=== PATIENT | female | born 1965 | race Caucasian/White ===

== ENCOUNTER 2016-04-24 12:43 | Outpatient (CLI) | payer OTHER | END 2016-04-24 12:44 | disposition home or self-care (01) | DX: S83.422A Sprain of lateral collateral ligament of left knee, initial encounter (principal); M17.12 Unilateral primary osteoarthritis, left knee ==

== ENCOUNTER 2016-08-31 18:29 | Outpatient (CLI) | payer OTHER | END 2016-08-31 18:30 | disposition critical access hospital (66) | LOC: EMS 18:29 | PROVIDERS: ATTEND Surgery | DX: R40.4 Transient alteration of awareness (principal) | CPT/HCPCS: A0425; A0429 ==

== ENCOUNTER 2016-08-31 18:51 | Inpatient (IN) | payer OTHER ==
[2016-08-31] MEDS ORDERED: SODIUM CHLORIDE 0.9% 1,000 ML IV ONE (18:58)
--- NOTE | 2016-08-31 18:59 | ED Physician Documentation ---
PD HPI OVERDOSE - Stated complaint Stated Complaint: AMS - History obtained from History obtained from: Family, EMS - History of Present Illness Timing - onset: Other (Brought in by ambulance, history from paramedics and the daughter for the most part. She been quite depressed lately and we think she overdosed this afternoon, potentially on Benadryl mostly, possibly gabapentin and meloxicam as well.) Review of Systems Unable to obtain: AMS PD PAST MEDICAL HISTORY - Past Medical History Respiratory: Asthma Neuro: Headache/migraine, Seizure disorder GI: Diverticulitis : Kidney stones Musculoskeletal: Rheumatoid arthritis, Chronic back pain - Past Surgical History Past Surgical History: Yes Ortho: Rotator cuff repair /FORENSIC EXAMINER: Tubal ligation - Present Medications Home Medications: Ambulatory Orders Medication Instructions Recorded Confirmed Gabapentin 100 mg PO TID 01/16/14 01/16/14 Hydrocodone/Acetaminophen 1 each PO Q6H PRN #20 tablet 01/16/14 [Hydrocodon-Acetaminophn 10-325] Hydrocodone/Acetaminophen 1 tab PO QPM PRN 01/16/14 01/16/14 [Hydrocodon-Acetaminophn 10-325] Hydroxyzine HCl 50 mg PO QPM 01/16/14 01/16/14 Meloxicam 10 mg PO DAILY 01/16/14 01/16/14 Rizatriptan Benzoate [Maxalt] 10 mg PO ONCE PRN 01/16/14 01/16/14 Topiramate [Topamax] 50 mg PO DAILY 01/16/14 01/16/14 - Allergies Allergies/Adverse Reactions: Allergies Allergy/AdvReac Type Severity Reaction Status Date / Time adhesive Allergy Unknown Verified 01/16/14 12:08 amoxicillin Allergy Unknown Verified 08/31/16 19:01 codeine Allergy Unknown Verified 01/16/14 12:08 Latex, Natural Rubber Allergy Unknown Verified 01/16/14 12:08 nickel [Nickel] Allergy Unknown Verified 01/16/14 12:08 prednisone Allergy Unknown Verified 01/16/14 12:08 venom-honey bee Allergy Unknown Verified 01/16/14 12:08 [bee venom (honey bee)] - Social History Does the pt smoke?: Yes Smoking Status: Current every day smoker Does the pt drink ETOH?: No Does the pt have substance abuse?: No PD ED PE NORMAL - Vitals Vital signs reviewed: Yes - General General: Other (She is alert, makes eye contact, nonsurgical at when I ask her if she overdosed and try to kill herself. She is for the most part nonverbal though with a lot of obvious nystagmus.) - HEENT HEENT: Other (Midpoint pupils with nystagmus, dry mucous membranes) - Neck Neck: Supple, no meningeal sign, No bony TTP - Cardiac Cardiac: RRR, No murmur - Respiratory Respiratory: No respiratory distress, Clear bilaterally - Abdomen Abdomen: Soft, Non tender - Derm Derm: Normal color, Warm and dry - Extremities Extremities: No edema, No calf tenderness / cord - Neuro Neuro: No motor deficit, No sensory deficit Results - Vitals Vitals: Vital Signs - 24 hr 08/31/16 08/31/16 18:53 19:37 Temperature 36.2 C L Heart Rate 88 90 Respiratory 18 18 Rate Blood Pressure 154/119 H 132/69 H O2 Saturation 97 94 Oxygen O2 Source Room air - EKG (time done) 1913 Rate: Rate (enter#) (87) Rhythm: NSR [place]: Normal Intervals: Normal HI QRS: Normal Ischemia: Normal ST segments Computer interpretation: Agree with computer - Labs Labs: Laboratory Tests 08/31/16 08/31/16 08/31/16 18:30 18:58 18:58 WBC 8.4 RBC 5.06 Hgb 15.8 Hct 46.9 MCV 92.7 MCH 31.2 H MCHC 33.7 RDW 12.8 Plt Count 250 MPV 9.2 Neut # 3.5 Lymph # 3.9 H Sutter # 0.7 Eos # 0.2 Baso # 0.0 Absolute Nucleated RBC 0.00 Nucleated RBCs 0.0 Sodium 139 Potassium 4.1 Chloride 105 Carbon Dioxide 23 Anion Gap 11.0 BUN 22 H Creatinine 0.8 Estimated GFR (MDRD) 76 L Glucose 88 Lactic Acid Calcium 9.5 Magnesium 2.5 Total Bilirubin 0.6 AST 50 H ALT 36 Alkaline Phosphatase 80 CK-MB (CK-2) 1.4 Troponin I < 0.04 Total Protein 8.7 H Albumin 4.9 Globulin 3.8 Albumin/Globulin Ratio 1.3 Lipase 13 L TSH Urine Color Urine Clarity Urine pH Ur Specific [place] Urine Protein Urine Glucose (UA) Urine Ketones Urine Occult Blood Urine Nitrite Urine Bilirubin Urine Urobilinogen Ur Leukocyte Esterase Ur Microscopic Review Urine Culture Comments Urine HCG, Qual Salicylates < 6.0 Urine Opiates Screen Ur Oxycodone Screen Urine Methadone Screen Ur Propoxyphene Screen Acetaminophen 10 Ur Barbiturates Screen Ur Tricyclics Screen Ur Phencyclidine Scrn Ur Amphetamine Screen U Methamphetamines Scrn U Benzodiazepines Scrn Urine Cocaine Screen U Cannabinoids Screen Ethyl Alcohol < 5.0 08/31/16 08/31/16 08/31/16 18:58 18:58 18:58 WBC RBC Hgb Hct MCV MCH MCHC RDW Plt Count MPV Neut # Lymph # Sutter # Eos # Baso # Absolute Nucleated RBC Nucleated RBCs Sodium 140 Potassium 4.2 Chloride 105 Carbon Dioxide 23 Anion Gap 12.0 BUN 23 H Creatinine 0.9 Estimated GFR (MDRD) 67 L Glucose 83 Lactic Acid Calcium 10.0 Magnesium Total Bilirubin 0.9 AST 49 H ALT 37 Alkaline Phosphatase 84 CK-MB (CK-2) Troponin I Total Protein 8.5 H Albumin 4.9 Globulin 3.6 Albumin/Globulin Ratio 1.4 Lipase TSH 1.19 Urine Color Urine Clarity Urine pH Ur Specific [place] Urine Protein Urine Glucose (UA) Urine Ketones Urine Occult Blood Urine Nitrite Urine Bilirubin Urine Urobilinogen Ur Leukocyte Esterase Ur Microscopic Review Urine Culture Comments Urine HCG, Qual Salicylates Urine Opiates Screen Ur Oxycodone Screen Urine Methadone Screen Ur Propoxyphene Screen Acetaminophen < 10 L Ur Barbiturates Screen Ur Tricyclics Screen Ur Phencyclidine Scrn Ur Amphetamine Screen U Methamphetamines Scrn U Benzodiazepines Scrn Urine Cocaine Screen U Cannabinoids Screen Ethyl Alcohol 08/31/16 08/31/16 08/31/16 18:58 19:28 19:28 WBC RBC Hgb Hct MCV MCH MCHC RDW Plt Count MPV Neut # Lymph # Sutter # Eos # Baso # Absolute Nucleated RBC Nucleated RBCs Sodium Potassium Chloride Carbon Dioxide Anion Gap BUN Creatinine Estimated GFR (MDRD) Glucose Lactic Acid 0.9 Calcium Magnesium Total Bilirubin AST ALT Alkaline Phosphatase CK-MB (CK-2) Troponin I Total Protein Albumin Globulin Albumin/Globulin Ratio Lipase TSH Urine Color STRAW Urine Clarity CLEAR Urine pH 5.5 Ur Specific [place] <=1.005 Urine Protein NEGATIVE Urine Glucose (UA) NEGATIVE Urine Ketones NEGATIVE Urine Occult Blood NEGATIVE Urine Nitrite NEGATIVE Urine Bilirubin NEGATIVE Urine Urobilinogen 0.2 (NORMAL) Ur Leukocyte Esterase NEGATIVE Ur Microscopic Review NOT INDICATED Urine Culture Comments NOT INDICATED Urine HCG, Qual NEGATIVE Salicylates Urine Opiates Screen NEGATIVE Ur Oxycodone Screen NEGATIVE Urine Methadone Screen NEGATIVE Ur Propoxyphene Screen NEGATIVE Acetaminophen Ur Barbiturates Screen NEGATIVE Ur Tricyclics Screen NEGATIVE Ur Phencyclidine Scrn NEGATIVE Ur Amphetamine Screen NEGATIVE U Methamphetamines Scrn NEGATIVE U Benzodiazepines Scrn NEGATIVE Urine Cocaine Screen NEGATIVE U Cannabinoids Screen NEGATIVE Ethyl Alcohol PD MEDICAL DECISION MAKING - ED course ED course: 51-year-old woman presents with altered mental status after an overdose, likely on Benadryl. Her EKG is without QRS widening. No evidence of other acute dangerous overdoses. Call to Dr. Esquivel for admission at 747 p.m. Departure - Departure Disposition: 66 [facility] DC/Xfer Clinical Impression: Delirium Overdose Qualifiers: Encounter type: initial encounter Injury intent: intentional self-harm Qualified Code(s): T50.902A - Poisoning by unspecified drugs, medicaments and biological substances, intentional self-harm, initial encounter Condition: Serious Discharge Date/Time: 08/31/16 20:53
[2016-08-31 19:11] LABS: BASOPHILS % (AUTO) 0.5 %; EOSINOPHILS # (AUTO) 0.2 10^3/uL (0.0-0.7); EOSINOPHILS % (AUTO) 1.8 %; HCT - HEMATOCRIT 46.9 % (37.0-47.0); HGB - HEMOGLOBIN 15.8 g/dL (12.0-16.0); LYMPHOCYTES # (AUTO) 3.9 10^3/uL (1.5-3.5); LYMPHOCYTES % (AUTO) 46.8 %; MEAN CORPUSCULAR HEMOGLOBIN 31.2 pg (27.0-31.0); MEAN CORPUSCULAR HGB CONC 33.7 g/dL (32.0-36.0); MEAN CORPUSCULAR VOLUME 92.7 fL (81.0-99.0); MEAN PLATELET VOLUME 9.2 fL (7.9-10.8); MONOCYTES # (AUTO) 0.7 10^3/uL (0.0-1.0); MONOCYTES % (AUTO) 8.9 %; NEUTROPHILS # (AUTO) 3.5 10^3/uL (1.5-6.6); RED BLOOD COUNT 5.06 10^6/uL (4.20-5.40); RED CELL DISTRIBUTION WIDTH 12.8 % (12.0-15.0); UNCORRECTED WHITE BLOOD COUNT 8.4 x10^3/uL; WHITE BLOOD COUNT 8.4 x10^3/uL (4.8-10.8)
[2016-08-31 19:23] LABS: ACETAMINOPHEN 10 ug/mL (10-30); ALBUMIN/GLOBULIN RATIO 1.3 (1.0-2.2); BILIRUBIN,TOTAL 0.6 mg/dL (0.2-1.0); BUN - BLOOD UREA NITROGEN 22 mg/dL (6-20); CALCIUM 9.5 mg/dL (8.5-10.3); CARBON DIOXIDE - CO2 23 mmol/L (21-32); CHLORIDE 105 mmol/L (101-111); CREATININE 0.8 mg/dL (0.4-1.0); GFR - MDRD 76 (>89); GLUCOSE 88 mg/dL (70-100); LIPASE 13 U/L (22-51); MAGNESIUM 2.5 mg/dL (1.7-2.8); POTASSIUM 4.1 mmol/L (3.5-5.0); SALICYLATE < 6.0 mg/dL; SODIUM 139 mmol/L (135-145); TOTAL PROTEIN 8.7 g/dL (6.7-8.2)
[2016-08-31 19:35] LABS: BILIRUBIN,URINE NEGATIVE (NEGATIVE); PH,URINE 5.5 PH (5.0-7.5)
[2016-08-31 19:38] LABS: HCG UR QUAL NEGATIVE; UA CHARGE (STRIP ONLY) YES; UR CULTURE IF IND NOT INDICATED
[2016-08-31] MEDS ORDERED: ALBUTEROL NEB 2.5 MG/3 ML INH PRN (20:22)
[2016-08-31] MEDS ORDERED: SODIUM CHLORIDE FLUSH 0.9% 10 ML SYRINGE IVP PRN (20:22)
[2016-08-31] MEDS ORDERED: ONDANSETRON 4 MG/2 ML VIAL IVP PRN (20:22)
[2016-08-31 20:42] LABS: VBG BASE EXCESS -6.8 mmol/L (-2 - +2); VBG OXYGEN SATURATION 89.9 % (60-80); VBG PH 7.284 (7.31-7.41); VBG TOTAL CO2 20.8 mmol/L (24-29)
[2016-08-31 20:52] LABS: TROPONIN I < 0.04 ng/mL (<0.49)
[2016-08-31 20:53] LABS: CREATINE KINASE MB 1.4 ng/mL (0.6-6.3)
[2016-08-31 20:54] LABS: ALBUMIN/GLOBULIN RATIO 1.4 (1.0-2.2); BILIRUBIN,TOTAL 0.9 mg/dL (0.2-1.0); CREATININE 0.9 mg/dL (0.4-1.0); POTASSIUM 4.2 mmol/L (3.5-5.0); TOTAL PROTEIN 8.5 g/dL (6.7-8.2)
[2016-08-31] MEDS: SODIUM CHLORIDE 0.9% 1,000 ML IV SCH (21:24)
[2016-08-31] MEDS: HEPARIN 5,000 UNIT/ML VIAL SUBQ SCH (21:24)
[2016-08-31] MEDS: FAMOTIDINE 20 MG/50 ML 50 ML IV SCH (21:25)
[2016-08-31] MEDS: SODIUM CHLORIDE FLUSH 0.9% 10 ML SYRINGE IVP SCH (21:28)
[2016-09-01 02:56] LABS: BASOPHILS # (AUTO) 0.1 10^3/uL (0.0-0.1); BASOPHILS % (AUTO) 0.6 %; EOSINOPHILS # (AUTO) 0.1 10^3/uL (0.0-0.7); EOSINOPHILS % (AUTO) 0.6 %; HCT - HEMATOCRIT 41.2 % (37.0-47.0); HGB - HEMOGLOBIN 13.8 g/dL (12.0-16.0); LYMPHOCYTES # (AUTO) 2.4 10^3/uL (1.5-3.5); LYMPHOCYTES % (AUTO) 26.5 %; MEAN CORPUSCULAR HEMOGLOBIN 31.2 pg (27.0-31.0); MEAN CORPUSCULAR HGB CONC 33.5 g/dL (32.0-36.0); MEAN CORPUSCULAR VOLUME 93.2 fL (81.0-99.0); MEAN PLATELET VOLUME 8.7 fL (7.9-10.8); MONOCYTES # (AUTO) 0.8 10^3/uL (0.0-1.0); MONOCYTES % (AUTO) 8.3 %; NEUTROPHILS # (AUTO) 5.8 10^3/uL (1.5-6.6); RED BLOOD COUNT 4.43 10^6/uL (4.20-5.40); UNCORRECTED WHITE BLOOD COUNT 9.1 x10^3/uL; WHITE BLOOD COUNT 9.1 x10^3/uL (4.8-10.8)
[2016-09-01 03:27] LABS: ALBUMIN/GLOBULIN RATIO 1.4 (1.0-2.2); BILIRUBIN,TOTAL 0.7 mg/dL (0.2-1.0); CALCIUM 8.2 mg/dL (8.5-10.3); CREATININE 0.7 mg/dL (0.4-1.0); MAGNESIUM 2.2 mg/dL (1.7-2.8); PHOSPHORUS 4.5 mg/dL (2.5-4.6); POTASSIUM 4.1 mmol/L (3.5-5.0); TOTAL PROTEIN 6.9 g/dL (6.7-8.2)
[2016-09-01] MEDS ORDERED: CALCIUM GLUCONATE 1,000 MG in SODIUM CHLORIDE 0.9% 50 ML IV ONE (03:31)
[2016-09-01] MEDS: SODIUM CHLORIDE 0.9% 1,000 ML IV SCH ×3 (04:39→20:01)
[2016-09-01] MEDS: SODIUM CHLORIDE FLUSH 0.9% 10 ML SYRINGE IVP SCH ×3 (04:39→22:01)
[2016-09-01 06:23] LABS: VBG BASE EXCESS -7.1 mmol/L (-2 - +2); VBG OXYGEN SATURATION 98.6 % (60-80); VBG PH 7.308 (7.31-7.41); VBG TOTAL CO2 19.7 mmol/L (24-29)
--- NOTE | 2016-09-01 08:19 | PROVIDER PROGRESS NOTE ---
Assessment/Plan - Problem List (1) Delirium Assessment/Plan: She is awake follows simple comands at times. She does not verbalize. Her eyes dart and she still has nystagmus. The etiology ie. which meds caused this is unclear. (2) Overdose Qualifiers: Encounter type: initial encounter Injury intent: intentional self-harm Qualified Code(s): T50.902A - Poisoning by unspecified drugs, medicaments and biological substances, intentional self-harm, initial encounter Assessment/Plan: OD has caused this complex of findings. She is improving so will continue with supportive care. - Current Meds Current Meds: Current Medications Generic Name Dose Route Start Last Admin Trade Name Freq PRN Reason Stop Dose Admin Heparin Sodium (Porcine) 5,000 unit 08/31/16 21:00 08/31/16 21:24 SUBQ 5,000 unit BID SOHEILA Administration Sodium Chloride 1,000 mls @ 150 mls/hr 08/31/16 21:00 09/01/16 04:39 Normal Saline 0.9% IV 150 mls/hr .[id number] SOHEILA Administration Famotidine 50 mls @ 100 mls/hr 08/31/16 21:00 08/31/16 21:25 Pepcid 20 Mg/50 Ml IV 100 mls/hr BID SOHEILA Administration Sodium Chloride 10 ml 08/31/16 22:00 09/01/16 04:39 Normal Saline Flush 0.9% IVP 10 ml Q8HR SOHEILA Administration - Lab Result Fish Bone Diagrams: 09/01/16 02:50 09/01/16 02:50 Subjective - Subjective Patient Reports: Other (unable to assess except by basic methods as she is nonverbal) Objective Vital Signs: Vital Signs - 24 hr 08/31/16 08/31/16 08/31/16 20:25 20:35 20:46 Temperature 37.1 C Heart Rate 89 90 Heart Rate [ Monitoring electrodes] Respiratory 18 16 Rate Blood Pressure 141/70 H 151/68 H Blood Pressure [Right Brachial artery] O2 Saturation 96 97 08/31/16 08/31/16 08/31/16 21:45 22:00 23:00 Temperature 36.0 C L Heart Rate 94 Heart Rate [ 90 91 Monitoring electrodes] Respiratory 16 14 14 Rate Blood Pressure Blood Pressure 187/51 H 125/67 [Right Brachial artery] O2 Saturation 98 98 09/01/16 09/01/16 09/01/16 00:00 01:00 01:10 Temperature Heart Rate Heart Rate [ 92 93 93 Monitoring electrodes] Respiratory 12 14 14 Rate Blood Pressure Blood Pressure 132/55 H 131/55 H 131/55 H [Right Brachial artery] O2 Saturation 98 98 97 09/01/16 09/01/16 09/01/16 01:54 03:00 03:59 Temperature 36.7 C 36.7 C Heart Rate Heart Rate [ 93 92 96 Monitoring electrodes] Respiratory 13 14 14 Rate Blood Pressure Blood Pressure 130/62 138/68 H 127/98 H [Right Brachial artery] O2 Saturation 98 97 98 09/01/16 09/01/16 09/01/16 05:00 05:51 06:50 Temperature Heart Rate Heart Rate [ 96 100 101 H Monitoring electrodes] Respiratory 16 15 14 Rate Blood Pressure Blood Pressure 120/65 128/98 H 130/62 [Right Brachial artery] O2 Saturation 97 97 98 09/01/16 09/01/16 07:36 08:00 Temperature 36.9 C Heart Rate Heart Rate [ 100 Monitoring electrodes] Respiratory 17 17 Rate Blood Pressure Blood Pressure 106/89 H [Right Brachial artery] O2 Saturation 97 Oxygen O2 Source Nasal cannula I&O (Last 24 Hrs): Intake and Output Totals x24h 08/30/16 08/31/16 09/01/16 23:59 23:59 23:59 Intake Total 1300 1200 Output Total 260 420 Balance 1040 780 General: Alert HEENT: PERRLA, EOMI Neck: No JVD, No thyromegaly Neuro: Alert, Disoriented, Non Focal Cardiovascular: Regular rate, No murmurs Respiratory: Chest non-tender, No respiratory distress, Breath sounds nml Abdomen: Normal bowel sounds, Soft, No tenderness Extremities: No cyanosis, No edema Skin: No rashes, No breakdown - Results Results: Laboratory Results WBC 9.1 x10^3/uL (4.8-10.8) 09/01/16 02:50 RBC 4.43 10^6/uL (4.20-5.40) 09/01/16 02:50 Hgb 13.8 g/dL (12.0-16.0) 09/01/16 02:50 Hct 41.2 % (37.0-47.0) 09/01/16 02:50 MCV 93.2 fL (81.0-99.0) 09/01/16 02:50 MCH 31.2 pg (27.0-31.0) H 09/01/16 02:50 MCHC 33.5 g/dL (32.0-36.0) 09/01/16 02:50 RDW 13.0 % (12.0-15.0) 09/01/16 02:50 Plt Count 220 10^3/uL (130-450) 09/01/16 02:50 MPV 8.7 fL (7.9-10.8) 09/01/16 02:50 Neut # 5.8 10^3/uL (1.5-6.6) 09/01/16 02:50 Lymph # 2.4 10^3/uL (1.5-3.5) 09/01/16 02:50 [place] # 0.8 10^3/uL (0.0-1.0) 09/01/16 02:50 Eos # 0.1 10^3/uL (0.0-0.7) 09/01/16 02:50 Baso # 0.1 10^3/uL (0.0-0.1) 09/01/16 02:50 Absolute Nucleated RBC 0.00 x10^3/uL 09/01/16 02:50 Nucleated RBCs 0.0 /100WBC 09/01/16 02:50 VBG pH 7.308 (7.31-7.41) L 09/01/16 06:16 VBG pCO2 37.8 mmHg (41-51) L 09/01/16 06:16 VBG pO2 138.9 mmHg (25-47) H 09/01/16 06:16 VBG HCO3 18.5 mmol/L (23-28) L 09/01/16 06:16 VBG Total CO2 19.7 mmol/L (24-29) L 09/01/16 06:16 VBG O2 Saturation 98.6 % (60-80) H 09/01/16 06:16 VBG Base Excess -7.1 mmol/L (-2 - +2) L 09/01/16 06:16 Sodium 141 mmol/L (135-145) 09/01/16 02:50 Potassium 4.1 mmol/L (3.5-5.0) 09/01/16 02:50 Chloride 115 mmol/L (101-111) H 09/01/16 02:50 Carbon Dioxide 20 mmol/L (21-32) L 09/01/16 02:50 Anion Gap 6.0 (6-13) 09/01/16 02:50 BUN 24 mg/dL (6-20) H 09/01/16 02:50 Creatinine 0.7 mg/dL (0.4-1.0) 09/01/16 02:50 Estimated GFR (MDRD) 89 (>89) 09/01/16 02:50 Glucose 86 mg/dL (70-100) 09/01/16 02:50 Lactic Acid 0.5 mmol/L (0.5-2.2) 09/01/16 06:16 Calcium 8.2 mg/dL (8.5-10.3) L 09/01/16 02:50 Phosphorus 4.5 mg/dL (2.5-4.6) 09/01/16 02:50 Magnesium 2.2 mg/dL (1.7-2.8) 09/01/16 02:50 Total Bilirubin 0.7 mg/dL (0.2-1.0) 09/01/16 02:50 AST 34 IU/L (10-42) 09/01/16 02:50 ALT 30 IU/L (10-60) 09/01/16 02:50 Alkaline Phosphatase 65 IU/L (42-121) 09/01/16 02:50 CK-MB (CK-2) 1.4 ng/mL (0.6-6.3) 08/31/16 18:30 Troponin I < 0.04 ng/mL (<0.49) 08/31/16 18:30 Total Protein 6.9 g/dL (6.7-8.2) 09/01/16 02:50 Albumin 4.0 g/dL (3.2-5.5) 09/01/16 02:50 Globulin 2.9 g/dL (2.1-4.2) 09/01/16 02:50 Albumin/Globulin Ratio 1.4 (1.0-2.2) 09/01/16 02:50 Lipase 13 U/L (22-51) L 08/31/16 18:58 TSH 1.19 uIU/mL (0.34-5.60) 08/31/16 18:58 Urine Color STRAW 08/31/16 19:28 Urine Clarity CLEAR (CLEAR) 08/31/16 19:28 Urine pH 5.5 PH (5.0-7.5) 08/31/16 19:28 Ur Specific [place] <=1.005 (1.002-1.030) 08/31/16 19:28 Urine Protein NEGATIVE mg/dL (NEGATIVE) 08/31/16 19:28 Urine Glucose (UA) NEGATIVE mg/dL (NEGATIVE) 08/31/16 19:28 Urine Ketones NEGATIVE mg/dL (NEGATIVE) 08/31/16 19:28 Urine Occult Blood NEGATIVE (NEGATIVE) 08/31/16 19:28 Urine Nitrite NEGATIVE (NEGATIVE) 08/31/16 19:28 Urine Bilirubin NEGATIVE (NEGATIVE) 08/31/16 19:28 Urine Urobilinogen 0.2 (NORMAL) E.U./dL (NORMAL) 08/31/16 19:28 Ur Leukocyte Esterase NEGATIVE (NEGATIVE) 08/31/16 19:28 Ur Microscopic Review NOT INDICATED 08/31/16 19:28 Urine Culture Comments NOT INDICATED 08/31/16 19:28 Urine HCG, Qual NEGATIVE 08/31/16 19:28 Salicylates < 6.0 mg/dL 08/31/16 18:58 Urine Opiates Screen NEGATIVE (NEGATIVE) 08/31/16 19:28 Ur Oxycodone Screen NEGATIVE (NEGATIVE) 08/31/16 19:28 Urine Methadone Screen NEGATIVE (NEGATIVE) 08/31/16 19:28 Ur Propoxyphene Screen NEGATIVE (NEGATIVE) 08/31/16 19:28 Acetaminophen < 10 ug/mL (10-30) L 09/01/16 02:50 Ur Barbiturates Screen NEGATIVE (NEGATIVE) 08/31/16 19:28 Ur Tricyclics Screen NEGATIVE (NEGATIVE) 08/31/16 19:28 Ur Phencyclidine Scrn NEGATIVE (NEGATIVE) 08/31/16 19:28 Ur Amphetamine Screen NEGATIVE (NEGATIVE) 08/31/16 19:28 U Methamphetamines Scrn NEGATIVE (NEGATIVE) 08/31/16 19:28 U Benzodiazepines Scrn NEGATIVE (NEGATIVE) 08/31/16 19:28 Urine Cocaine Screen NEGATIVE (NEGATIVE) 06/10/17 19:28 U Cannabinoids Screen NEGATIVE (NEGATIVE) 08/31/16 19:28 Ethyl Alcohol < 5.0 mg/dL 08/31/16 18:58
[2016-09-01] MEDS: HEPARIN 5,000 UNIT/ML VIAL SUBQ SCH ×2 (09:09→20:40)
[2016-09-01] MEDS: FAMOTIDINE 20 MG/50 ML 50 ML IV SCH ×2 (09:09→20:40)
[2016-09-01] MEDS ORDERED: WATER FOR INJECTION,STERILE 10 ML ONE (22:54)
[2016-09-01] MEDS: ZIPRASIDONE 20 MG VIAL IM PRN (23:02)
[2016-09-02] MEDS: SODIUM CHLORIDE 0.9% 1,000 ML IV SCH ×3 (00:13→10:25)
[2016-09-02 05:44] LABS: BASOPHILS # (AUTO) 0.1 10^3/uL (0.0-0.1); BASOPHILS % (AUTO) 0.8 %; EOSINOPHILS # (AUTO) 0.2 10^3/uL (0.0-0.7); EOSINOPHILS % (AUTO) 1.7 %; HCT - HEMATOCRIT 39.9 % (37.0-47.0); HGB - HEMOGLOBIN 13.3 g/dL (12.0-16.0); LYMPHOCYTES # (AUTO) 2.1 10^3/uL (1.5-3.5); LYMPHOCYTES % (AUTO) 23.3 %; MEAN CORPUSCULAR HEMOGLOBIN 31.1 pg (27.0-31.0); MEAN CORPUSCULAR HGB CONC 33.4 g/dL (32.0-36.0); MEAN CORPUSCULAR VOLUME 93.2 fL (81.0-99.0); MEAN PLATELET VOLUME 8.8 fL (7.9-10.8); MONOCYTES % (AUTO) 10.7 %; NEUTROPHILS # (AUTO) 5.8 10^3/uL (1.5-6.6); NEUTROPHILS % (AUTO) 63.5 %; NUCLEATED RED BLOOD CELLS AUTO 0.1 /100WBC; RED BLOOD COUNT 4.29 10^6/uL (4.20-5.40); UNCORRECTED WHITE BLOOD COUNT 9.1 x10^3/uL; WHITE BLOOD COUNT 9.1 x10^3/uL (4.8-10.8)
[2016-09-02 05:53] LABS: ALBUMIN/GLOBULIN RATIO 1.3 (1.0-2.2); BILIRUBIN,TOTAL 0.7 mg/dL (0.2-1.0); CALCIUM 8.6 mg/dL (8.5-10.3); CREATININE 0.8 mg/dL (0.4-1.0); MAGNESIUM 1.9 mg/dL (1.7-2.8); PHOSPHORUS 2.8 mg/dL (2.5-4.6); TOTAL PROTEIN 6.2 g/dL (6.7-8.2)
[2016-09-02] MEDS: SODIUM CHLORIDE FLUSH 0.9% 10 ML SYRINGE IVP SCH ×2 (06:20→13:44)
--- NOTE | 2016-09-02 06:33 | HISTORY & PHYSICAL EXAMINATION ---
DATE OF ADMISSION: 08/31/2016 PRIMARY CARE PROVIDER: Susan Nelson DO. CHIEF COMPLAINT: Possible ingestion with suicidal ideation. HISTORY OF PRESENT ILLNESS: A 51-year-old female who does have a history of migraine headaches, history of chronic pain, history of depression with inpatient admission about 12 years ago with an overdose at that time secondary to depression. Daughter and are at bedside. Patient is not able to give a history, and daughter notes that patient has been much more depressed due to a lot of work circumstances, financial circumstances over the past few months. She saw her last at about noon time, and patient seemed fine; and then son came by about 6 p.m. and found mom quite lethargic with slurred speech, and patient was brought in by 911 EMS to the emergency room here. They did find an empty bottle of diphenhydramine [id number]. Patient's other medication bottles were not found. She does usually take gabapentin, meloxicam, Maxalt p.r.n., and Topamax. Her urine drug screen revealed negative for all substances tested; alcohol level was less than 5.0, acetaminophen level was 10, salicylates was less than 6.0, bicarbonate was noted to be 23, anion gap of 11. PAST MEDICAL HISTORY 1. History of depression. 2. History of seizure disorder, none since 12 years ago. 3. History of chronic back pain. MEDICATIONS 1. Topamax 50 mg p.o. daily. 2. Gabapentin 100 mg p.o. t.i.d. 3. Hydroxyzine 50 mg p.o. q.p.m. 4. Maxalt 10 mg p.o. p.r.n. pain. ALLERGIES 1. ADHESIVE. 2. AMOXICILLIN. 3. CODEINE. 4. LATEX. 5. NICKEL. 6. PREDNISONE. 7. HONEY BEES. SOCIAL HISTORY: Lives alone. Smoking: None currently. Alcohol: None currently. FAMILY MEDICAL HISTORY: No history of heart disease or lung disease. REVIEW OF SYSTEMS: Unable to get from patient, but per daughter and son no recent cough, no chest pain, no heart problems, no lung problems. All other review of systems were questioned and were negative per family. PHYSICAL EXAMINATION VITAL SIGNS: Temperature is afebrile, heart rate is 89, blood pressure 141/70, respiratory rate 18, room air saturation 96%. CONSTITUTIONAL: A middle-aged lethargic female who does respond to some verbal stimuli very slowly. HEENT: Head normocephalic, atraumatic. Eyes: Pupils are dilated but do react to light directly and consensually. EOMI. Mouth: Dry mucosa. NECK: No adenopathy. Carotids 2+/4 without bruits. CHEST: Clear to auscultation. COR: Regular rate and rhythm, S1, S2 without murmur. ABDOMEN: Soft, nontender. Bowel sounds present. EXTREMITIES: Exam reveals no pedal edema. SKIN: No rashes. PSYCHIATRIC: Unable to assess. NEUROLOGICAL: She is lethargic but does awaken to voice and touch stimuli, moves all extremities equally. LABORATORY Labs as above, also to include: EKG is sinus at a rate of 87. QTc is 477, QRS 95, AR 143. UA shows specific gravity less than 1.005, otherwise negative. Urine hCG is negative. Sodium 139, potassium 4.1, chloride 105, bicarbonate 23, BUN 22, creatinine 0.8 , calculated GFR 76, glucose 88, calcium 9.5, magnesium 2.5, total bilirubin 0.5 , AST 50, ALT 36, alkaline phosphatase 80, total protein 8.7, albumin 4.9, lipase 13, TSH 1.19. White count 8.4, hematocrit 46.9, hemoglobin 15.8, MCV 92.7, platelets 250, neutrophils 3.5, lymphocytes 3.9. Venous blood gas is pending. CPK is pending. Lactic acid is pending. ASSESSMENT AND PLAN 1. Overdose with resultant acute encephalopathy, possibly diphenhydramine and gabapentin. I did call [facility], who recommended IV fluids, recheck EKG in 4 hours, keep on telemetry, seizure precautions. I did repeat a Tylenol level to make sure that it is not increasing, as we do not know specifically the time of ingestion. Also check lactic acid, CPK. Also will repeat complete metabolic panel, monitor renal and liver function, check venous blood gas make sure patient does not have respiratory acidosis; O2 saturation is fine per pulse oximetry. Aspiration precautions, n.p.o. 2. Possible suicidal ideation, present on admission. We will go ahead and place 1:1. Once medically stable, we will get DMHP evaluation. 3. Deep venous thrombosis prophylaxis. We will use SCDs; subcutaneous anticoagulation also. 4. Code status. Patient is FULL CODE. TIME SPENT: 60 minutes. JOB #: [id number] EXT JOB #:[id number]
[2016-09-02] MEDS: HEPARIN 5,000 UNIT/ML VIAL SUBQ SCH ×2 (08:43→20:22)
[2016-09-02] MEDS: FAMOTIDINE 20 MG/50 ML 50 ML IV SCH (08:46)
[2016-09-02] MEDS: LORazepam 2 MG/ML SYRINGE IVP PRN ×2 (11:04→13:24)
[2016-09-02] MEDS ORDERED: WATER FOR INJECTION,STERILE 10 ML ONE ×2 (13:45→22:04)
[2016-09-02] MEDS: ZIPRASIDONE 20 MG VIAL IM PRN ×2 (13:57→22:13)
[2016-09-02] MEDS ORDERED: LORazepam 0.5 MG TABLET PO PRN (13:59)
[2016-09-03 05:10] LABS: BASOPHILS # (AUTO) 0.1 10^3/uL (0.0-0.1); BASOPHILS % (AUTO) 0.8 %; EOSINOPHILS # (AUTO) 0.3 10^3/uL (0.0-0.7); EOSINOPHILS % (AUTO) 3.2 %; HCT - HEMATOCRIT 37.9 % (37.0-47.0); HGB - HEMOGLOBIN 12.9 g/dL (12.0-16.0); LYMPHOCYTES # (AUTO) 2.4 10^3/uL (1.5-3.5); LYMPHOCYTES % (AUTO) 25.7 %; MEAN CORPUSCULAR HEMOGLOBIN 31.6 pg (27.0-31.0); MEAN CORPUSCULAR VOLUME 92.9 fL (81.0-99.0); MEAN PLATELET VOLUME 8.8 fL (7.9-10.8); MONOCYTES # (AUTO) 0.8 10^3/uL (0.0-1.0); MONOCYTES % (AUTO) 8.4 %; NEUTROPHILS # (AUTO) 5.7 10^3/uL (1.5-6.6); NEUTROPHILS % (AUTO) 61.9 %; RED BLOOD COUNT 4.08 10^6/uL (4.20-5.40); RED CELL DISTRIBUTION WIDTH 12.8 % (12.0-15.0); UNCORRECTED WHITE BLOOD COUNT 9.2 x10^3/uL; WHITE BLOOD COUNT 9.2 x10^3/uL (4.8-10.8)
[2016-09-03 05:18] LABS: ALBUMIN/GLOBULIN RATIO 1.3 (1.0-2.2); BILIRUBIN,TOTAL 0.5 mg/dL (0.2-1.0); CALCIUM 8.5 mg/dL (8.5-10.3); CREATININE 0.9 mg/dL (0.4-1.0); POTASSIUM 3.8 mmol/L (3.5-5.0); TOTAL PROTEIN 6.2 g/dL (6.7-8.2)
[2016-09-03] MEDS: HEPARIN 5,000 UNIT/ML VIAL SUBQ SCH ×2 (08:07→20:35)
[2016-09-03] MEDS: DOCUSATE SODIUM 250 MG CAPSULE PO SCH (09:40)
[2016-09-03] MEDS: SENNA 8.6 MG TABLET PO SCH (09:40)
[2016-09-03] MEDS: POLYETHYLENE GLYCOL 3350 17 GM PACKET PO SCH (09:40)
--- NOTE | 2016-09-03 11:47 | CT Report ---
CT BRAIN WITHOUT CONTRAST: 09/03/2016 CLINICAL INDICATION: Hallucinations, unsteady gait. TECHNIQUE: Axial CT images of the brain were obtained without contrast. No previous CT is available for comparison. In accordance with CT protocol optimization, one or more of the following dose reduction techniques w ere utilized for this exam: automated exposure control, adjustment of mA and/or KV based on patient size, or use of iterative reconstructive technique. FINDINGS: The ventricles and sulci are normal in size, shape, and configuration. The basilar cister ns are patent. There is no evidence of intracranial hemorrhage, mass effect, or midline shift. The visualized orbital contents and paranasal sinuses are unremarkable. IMPRESSION: NORMAL CT OF THE BRAIN WITHOUT CONTRAST. JOB #: [id number] EXT JOB #:[id number]
--- NOTE | 2016-09-03 16:19 | PROVIDER PROGRESS NOTE ---
Assessment/Plan - Problem List (1) Delirium Assessment/Plan: Patient has acute delirium with hallucinations She continues to hallucinate and is confused CT head done today which was negative Labs and infectious work up is negative This could be seconday to ICU delirium or could be underlying psych disorder Patient will be continued on ziprasidone and ativan One on one with sitter Monitor Will need inpatient psych placement (2) Overdose Qualifiers: Encounter type: initial encounter Injury intent: intentional self-harm Qualified Code(s): T50.902A - Poisoning by unspecified drugs, medicaments and biological substances, intentional self-harm, initial encounter Assessment/Plan: Suicide attempt Overdose with home meds: topamax, gabapentin and meloxicam Improving Above appear to have been metabolized Patient continues to be suicidal but not voluntary placement Patient too unsteady and impulsive to go to inpatient psych Needs further PT Placement not possible secondary to suicidal ideations (3) Ataxia Assessment/Plan: Very unsteady gait CT head negative Not unsteady due to overdose PT evaluated and did not feel patient safe for discharge to psych facility PT to continue to work with patient Difficult to place in SNF for rehab secondary to delirium and suicidal ideations and inability to perform basic ADLs. - Current Meds Current Meds: Current Medications Generic Name Dose Route Start Last Admin Trade Name Freq PRN Reason Stop Dose Admin Docusate Sodium 250 - 500 mg 09/03/16 09:00 09/03/16 09:40 Colace 250mg Capsule PO 250 mg DAILY SOHEILA Administration Heparin Sodium (Porcine) 5,000 unit 08/31/16 21:00 09/03/16 08:07 SUBQ 5,000 unit BID SOHEILA Administration Lorazepam 1 mg 09/02/16 13:59 09/02/16 15:49 Ativan PO 1 mg Q6H PRN Administration Agitation Polyethylene Glycol 17 gm 09/03/16 09:00 09/03/16 09:40 Miralax PO 17 gm DAILY SOHEILA Administration Senna 8.6 - 17.2 mg 09/03/16 09:00 09/03/16 09:40 Senokot PO 8.6 mg DAILY SOHEILA Administration Ziprasidone 10 mg 09/01/16 22:44 09/02/16 22:13 Geodon Im IM 10 mg Q6H PRN Administration Agitation - Lab Result Lab results reviewed: Yes Fish Bone Diagrams: 09/03/16 04:58 09/03/16 04:58 - EKG Results EKG Interpreted Independently: Yes - Diagnostic Imaging Results Diagnostic Imaging Results: positive: Final report reviewed - Additional Planning Condition/Complexity: Guarded My Orders: My Active Orders 09/03/16 09:00 Docusate Sodium 250Mg Capsule [Colace 250Mg Capsule] 250 - 500 mg PO DAILY Polyethylene Glycol 3350 [Miralax] 17 gm PO DAILY Senna [Senokot] 8.6 - 17.2 mg PO DAILY Consult/Specialty: OT, PT Plan Discussed with:: Patient Time Spent: 31-60 minutes Subjective - Subjective Patient Reports: Other (Confused, hallucinating. Denies any shortness of breath , fevers, chest pain.) Nursing Reports: Confused Objective Vital Signs: Vital Signs - 24 hr 09/02/16 09/03/16 09/03/16 20:30 00:00 06:00 Temperature 36.6 C Heart Rate 100 Heart Rate [ 89 86 Monitoring electrodes] Respiratory 18 16 12 Rate Blood Pressure 133/69 H 136/63 H [Right Brachial artery] O2 Saturation 96 98 09/03/16 09/03/16 09/03/16 07:10 07:30 13:57 Temperature 36.3 C L Heart Rate 82 Heart Rate [ 85 82 Monitoring electrodes] Respiratory 13 19 17 Rate Blood Pressure 123/66 148/60 H [Right Brachial artery] O2 Saturation 97 96 09/03/16 15:55 Temperature 36.5 C Heart Rate Heart Rate [ 88 Monitoring electrodes] Respiratory 18 Rate Blood Pressure 137/68 H [Right Brachial artery] O2 Saturation 97 Oxygen O2 Source Room air I&O (Last 24 Hrs): Intake and Output Totals x24h 09/01/16 09/02/16 09/03/16 23:59 23:59 23:59 Intake Total 4205 2540 1000 Output Total 1635 2805 2400 Balance 3660 -265 -1400 General: Alert, Other (Confused, hallucinating) HEENT: Atraumatic, PERRLA, EOMI, Mucous membr. moist/pink Neck: Supple, No JVD, No thyromegaly, +2 carotid pulse wo bruit, No LAD Lymphatic: no adenopathy Neuro: Alert, Disoriented, Non Focal, CN 2-12 Grossly Intact Cardiovascular: Regular rate, Normal S1, Normal S2, No murmurs Respiratory: Chest non-tender, No respiratory distress, Breath sounds nml Abdomen: Normal bowel sounds, Soft, No tenderness, No hepatospenomegaly Extremities: No clubbing, No cyanosis, No edema, Normal pulses Skin: No rashes, No breakdown - Results Results: Laboratory Results WBC 9.2 x10^3/uL (4.8-10.8) 09/03/16 04:58 RBC 4.08 10^6/uL (4.20-5.40) L 09/03/16 04:58 Hgb 12.9 g/dL (12.0-16.0) 09/03/16 04:58 Hct 37.9 % (37.0-47.0) 09/03/16 04:58 MCV 92.9 fL (81.0-99.0) 09/03/16 04:58 MCH 31.6 pg (27.0-31.0) H 09/03/16 04:58 MCHC 34.0 g/dL (32.0-36.0) 09/03/16 04:58 RDW 12.8 % (12.0-15.0) 09/03/16 04:58 Plt Count 171 10^3/uL (130-450) 09/03/16 04:58 MPV 8.8 fL (7.9-10.8) 09/03/16 04:58 Neut # 5.7 10^3/uL (1.5-6.6) 09/03/16 04:58 Lymph # 2.4 10^3/uL (1.5-3.5) 09/03/16 04:58 [place] # 0.8 10^3/uL (0.0-1.0) 09/03/16 04:58 Eos # 0.3 10^3/uL (0.0-0.7) 09/03/16 04:58 Baso # 0.1 10^3/uL (0.0-0.1) 09/03/16 04:58 Absolute Nucleated RBC 0.00 x10^3/uL 09/03/16 04:58 Nucleated RBCs 0.0 /100WBC 09/03/16 04:58 VBG pH 7.308 (7.31-7.41) L 09/01/16 06:16 VBG pCO2 37.8 mmHg (41-51) L 09/01/16 06:16 VBG pO2 138.9 mmHg (25-47) H 09/01/16 06:16 VBG HCO3 18.5 mmol/L (23-28) L 09/01/16 06:16 VBG Total CO2 19.7 mmol/L (24-29) L 09/01/16 06:16 VBG O2 Saturation 98.6 % (60-80) H 09/01/16 06:16 VBG Base Excess -7.1 mmol/L (-2 - +2) L 09/01/16 06:16 Sodium 140 mmol/L (135-145) 09/03/16 04:58 Potassium 3.8 mmol/L (3.5-5.0) 09/03/16 04:58 Chloride 111 mmol/L (101-111) 09/03/16 04:58 Carbon Dioxide 21 mmol/L (21-32) 09/03/16 04:58 Anion Gap 8.0 (6-13) 09/03/16 04:58 BUN 15 mg/dL (6-20) 09/03/16 04:58 Creatinine 0.9 mg/dL (0.4-1.0) 09/03/16 04:58 Estimated GFR (MDRD) 67 (>89) L 09/03/16 04:58 Glucose 77 mg/dL (70-100) 09/03/16 04:58 Lactic Acid 0.5 mmol/L (0.5-2.2) 09/01/16 06:16 Calcium 8.5 mg/dL (8.5-10.3) 09/03/16 04:58 Phosphorus 2.8 mg/dL (2.5-4.6) 09/02/16 05:32 Magnesium 1.9 mg/dL (1.7-2.8) 09/02/16 05:32 Total Bilirubin 0.5 mg/dL (0.2-1.0) 09/03/16 04:58 AST 21 IU/L (10-42) 09/03/16 04:58 ALT 21 IU/L (10-60) 09/03/16 04:58 Alkaline Phosphatase 66 IU/L (42-121) 09/03/16 04:58 CK-MB (CK-2) 1.4 ng/mL (0.6-6.3) 08/31/16 18:30 Troponin I < 0.04 ng/mL (<0.49) 08/31/16 18:30 Total Protein 6.2 g/dL (6.7-8.2) L 09/03/16 04:58 Albumin 3.5 g/dL (3.2-5.5) 09/03/16 04:58 Globulin 2.7 g/dL (2.1-4.2) 09/03/16 04:58 Albumin/Globulin Ratio 1.3 (1.0-2.2) 09/03/16 04:58 Lipase 13 U/L (22-51) L 08/31/16 18:58 TSH 1.19 uIU/mL (0.34-5.60) 08/31/16 18:58 Urine Color STRAW 08/31/16 19:28 Urine Clarity CLEAR (CLEAR) 08/31/16 19:28 Urine pH 5.5 PH (5.0-7.5) 08/31/16 19:28 Ur Specific [place] <=1.005 (1.002-1.030) 08/31/16 19:28 Urine Protein NEGATIVE mg/dL (NEGATIVE) 08/31/16 19:28 Urine Glucose (UA) NEGATIVE mg/dL (NEGATIVE) 08/31/16 19:28 Urine Ketones NEGATIVE mg/dL (NEGATIVE) 08/31/16 19:28 Urine Occult Blood NEGATIVE (NEGATIVE) 08/31/16 19:28 Urine Nitrite NEGATIVE (NEGATIVE) 08/31/16 19:28 Urine Bilirubin NEGATIVE (NEGATIVE) 08/31/16 19:28 Urine Urobilinogen 0.2 (NORMAL) E.U./dL (NORMAL) 08/31/16 19:28 Ur Leukocyte Esterase NEGATIVE (NEGATIVE) 08/31/16 19:28 Ur Microscopic Review NOT INDICATED 08/31/16 19:28 Urine Culture Comments NOT INDICATED 08/31/16 19:28 Urine HCG, Qual NEGATIVE 08/31/16 19:28 Salicylates < 6.0 mg/dL 08/31/16 18:58 Urine Opiates Screen NEGATIVE (NEGATIVE) 08/31/16 19:28 Ur Oxycodone Screen NEGATIVE (NEGATIVE) 08/31/16 19:28 Urine Methadone Screen NEGATIVE (NEGATIVE) 08/31/16 19:28 Ur Propoxyphene Screen NEGATIVE (NEGATIVE) 08/31/16 19:28 Acetaminophen < 10 ug/mL (10-30) L 09/01/16 02:50 Ur Barbiturates Screen NEGATIVE (NEGATIVE) 08/31/16 19:28 Ur Tricyclics Screen NEGATIVE (NEGATIVE) 08/31/16 19:28 Ur Phencyclidine Scrn NEGATIVE (NEGATIVE) 08/31/16 19:28 Ur Amphetamine Screen NEGATIVE (NEGATIVE) 08/31/16 19:28 U Methamphetamines Scrn NEGATIVE (NEGATIVE) 08/31/16 19:28 U Benzodiazepines Scrn NEGATIVE (NEGATIVE) 08/31/16 19:28 Urine Cocaine Screen NEGATIVE (NEGATIVE) 08/31/16 19:28 U Cannabinoids Screen NEGATIVE (NEGATIVE) 08/31/16 19:28 Ethyl Alcohol < 5.0 mg/dL 08/31/16 18:58
[2016-09-04] MEDS ORDERED: SODIUM CHLORIDE FLUSH 0.9% 10 ML SYRINGE IVP ONE (05:46)
[2016-09-04] MEDS: BENZOCAINE/MENTHOL LOZENGE MM PRN ×2 (05:47→20:19)
[2016-09-04] MEDS: DOCUSATE SODIUM 250 MG CAPSULE PO SCH (08:17)
[2016-09-04] MEDS: SENNA 8.6 MG TABLET PO SCH (08:17)
[2016-09-04] MEDS: POLYETHYLENE GLYCOL 3350 17 GM PACKET PO SCH (08:17)
[2016-09-04] MEDS: HEPARIN 5,000 UNIT/ML VIAL SUBQ SCH ×2 (09:58→20:19)
--- NOTE | 2016-09-04 15:55 | PROVIDER PROGRESS NOTE ---
Assessment/Plan - Problem List (1) Delirium Assessment/Plan: Patient had acute delirium with hallucinations She is much improved today with no hallucinations but still confused at times CT head was negative Labs and infectious work up is negative Likely ICU delirium and is improving Patient will be continued on ziprasidone and ativan One on one with sitter Monitor Will need inpatient psych placement (2) Overdose Qualifiers: Encounter type: initial encounter Injury intent: intentional self-harm Qualified Code(s): T50.902A - Poisoning by unspecified drugs, medicaments and biological substances, intentional self-harm, initial encounter Assessment/Plan: Suicide attempt Overdose with home meds: topamax, gabapentin and meloxicam Improving QT now normal will stop Tele Patient continues to be suicidal but not voluntary placement Patient too unsteady and impulsive to go to inpatient psych PT today states patient is much improved and will likely be safe for inpatient psych eval from [facility] with one more day of PT Will have [facility] evaluate patient once cleared by PT (3) Ataxia Assessment/Plan: Very unsteady gait CT head negative Likely was part of the delirium and weakness from hospitalization Patient improved today but not back to baseline needs one more day of PT PT evaluated and did not feel patient safe for discharge to psych facility but getting closer Once cleared by PT will be evaluated by [facility] - Current Meds Current Meds: Current Medications Generic Name Dose Route Start Last Admin Trade Name Freq PRN Reason Stop Dose Admin Docusate Sodium 250 - 500 mg 09/03/16 09:00 09/04/16 08:17 Colace 250mg Capsule PO 250 mg DAILY SOHEILA Administration Heparin Sodium (Porcine) 5,000 unit 08/31/16 21:00 09/04/16 09:58 SUBQ 5,000 unit BID SOHEILA Administration Lorazepam 1 mg 09/02/16 13:59 09/02/16 15:49 Ativan PO 1 mg Q6H PRN Administration Agitation Polyethylene Glycol 17 gm 09/03/16 09:00 09/04/16 08:17 Miralax PO 17 gm DAILY SOHEILA Administration Senna 8.6 - 17.2 mg 09/03/16 09:00 09/04/16 08:17 Senokot PO 8.6 mg DAILY SOHEILA Administration Throat Lozenges 1 lozenge 09/04/16 05:39 09/04/16 05:47 Cepacol MM 1 lozenge Q2HR PRN Administration Throat pain Ziprasidone 10 mg 09/01/16 22:44 09/02/16 22:13 Geodon Im IM 10 mg Q6H PRN Administration Agitation - Lab Result Lab results reviewed: Yes Fish Bone Diagrams: 09/03/16 04:58 09/03/16 04:58 - EKG Results EKG Interpreted Independently: Yes - Diagnostic Imaging Results Diagnostic Imaging Results: positive: Final report reviewed - Additional Planning Condition/Complexity: Improved My Orders: My Active Orders 09/04/16 05:39 Benzocaine/Menthol [Cepacol] 1 lozenge MM Q2HR PRN Consult/Specialty: PT Plan Discussed with:: Patient, Family Time Spent: 31-60 minutes Subjective - Subjective Patient Reports: Feeling Better (NO hallucinations today she states she is still weak but feeling stronger. No chest pain, shortness of breath or fevers.) Nursing Reports: Confused Objective Vital Signs: Vital Signs - 24 hr 09/03/16 09/03/16 09/04/16 15:55 20:27 05:39 Temperature 36.5 C 37.1 C 36.9 C Heart Rate [ 88 83 77 Monitoring electrodes] Respiratory 18 10 L 12 Rate Blood Pressure 137/68 H 127/64 119/56 L [Right Brachial artery] O2 Saturation 97 97 94 09/04/16 08:00 Temperature 37.4 C Heart Rate [ 75 Monitoring electrodes] Respiratory 12 Rate Blood Pressure 141/64 H [Right Brachial artery] O2 Saturation 96 Oxygen O2 Source Room air I&O (Last 24 Hrs): Intake and Output Totals x24h 09/02/16 09/03/16 09/04/16 23:59 23:59 23:59 Intake Total 2540 1240 420 Output Total 2805 2725 825 Balance -265 -1485 -277 General: Alert, Cooperative, No acute distress HEENT: Atraumatic, PERRLA, EOMI, Mucous membr. moist/pink Neck: Supple, No JVD, No thyromegaly, +2 carotid pulse wo bruit, No LAD Lymphatic: no adenopathy Neuro: Alert, Disoriented, Non Focal, CN 2-12 Grossly Intact Cardiovascular: Regular rate, Normal S1, Normal S2 Respiratory: Chest non-tender, No respiratory distress, Breath sounds nml Abdomen: Normal bowel sounds, Soft, No tenderness, No hepatospenomegaly Extremities: No clubbing, No cyanosis, No edema, Normal pulses Skin: No rashes, No breakdown - Results Results: Laboratory Results WBC 9.2 x10^3/uL (4.8-10.8) 09/03/16 04:58 RBC 4.08 10^6/uL (4.20-5.40) L 09/03/16 04:58 Hgb 12.9 g/dL (12.0-16.0) 09/03/16 04:58 Hct 37.9 % (37.0-47.0) 09/03/16 04:58 MCV 92.9 fL (81.0-99.0) 09/03/16 04:58 MCH 31.6 pg (27.0-31.0) H 09/03/16 04:58 MCHC 34.0 g/dL (32.0-36.0) 09/03/16 04:58 RDW 12.8 % (12.0-15.0) 09/03/16 04:58 Plt Count 171 10^3/uL (130-450) 09/03/16 04:58 MPV 8.8 fL (7.9-10.8) 09/03/16 04:58 Neut # 5.7 10^3/uL (1.5-6.6) 09/03/16 04:58 Lymph # 2.4 10^3/uL (1.5-3.5) 09/03/16 04:58 [place] # 0.8 10^3/uL (0.0-1.0) 09/03/16 04:58 Eos # 0.3 10^3/uL (0.0-0.7) 09/03/16 04:58 Baso # 0.1 10^3/uL (0.0-0.1) 09/03/16 04:58 Absolute Nucleated RBC 0.00 x10^3/uL 09/03/16 04:58 Nucleated RBCs 0.0 /100WBC 09/03/16 04:58 VBG pH 7.308 (7.31-7.41) L 09/01/16 06:16 VBG pCO2 37.8 mmHg (41-51) L 09/01/16 06:16 VBG pO2 138.9 mmHg (25-47) H 09/01/16 06:16 VBG HCO3 18.5 mmol/L (23-28) L 09/01/16 06:16 VBG Total CO2 19.7 mmol/L (24-29) L 09/01/16 06:16 VBG O2 Saturation 98.6 % (60-80) H 09/01/16 06:16 VBG Base Excess -7.1 mmol/L (-2 - +2) L 09/01/16 06:16 Sodium 140 mmol/L (135-145) 09/03/16 04:58 Potassium 3.8 mmol/L (3.5-5.0) 09/03/16 04:58 Chloride 111 mmol/L (101-111) 09/03/16 04:58 Carbon Dioxide 21 mmol/L (21-32) 09/03/16 04:58 Anion Gap 8.0 (6-13) 09/03/16 04:58 BUN 15 mg/dL (6-20) 09/03/16 04:58 Creatinine 0.9 mg/dL (0.4-1.0) 09/03/16 04:58 Estimated GFR (MDRD) 67 (>89) L 09/03/16 04:58 Glucose 77 mg/dL (70-100) 09/03/16 04:58 Lactic Acid 0.5 mmol/L (0.5-2.2) 09/01/16 06:16 Calcium 8.5 mg/dL (8.5-10.3) 09/03/16 04:58 Phosphorus 2.8 mg/dL (2.5-4.6) 09/02/16 05:32 Magnesium 1.9 mg/dL (1.7-2.8) 09/02/16 05:32 Total Bilirubin 0.5 mg/dL (0.2-1.0) 09/03/16 04:58 AST 21 IU/L (10-42) 09/03/16 04:58 ALT 21 IU/L (10-60) 09/03/16 04:58 Alkaline Phosphatase 66 IU/L (42-121) 09/03/16 04:58 CK-MB (CK-2) 1.4 ng/mL (0.6-6.3) 08/31/16 18:30 Troponin I < 0.04 ng/mL (<0.49) 08/31/16 18:30 Total Protein 6.2 g/dL (6.7-8.2) L 09/03/16 04:58 Albumin 3.5 g/dL (3.2-5.5) 09/03/16 04:58 Globulin 2.7 g/dL (2.1-4.2) 09/03/16 04:58 Albumin/Globulin Ratio 1.3 (1.0-2.2) 09/03/16 04:58 Lipase 13 U/L (22-51) L 08/31/16 18:58 TSH 1.19 uIU/mL (0.34-5.60) 08/31/16 18:58 Urine Color STRAW 08/31/16 19:28 Urine Clarity CLEAR (CLEAR) 08/31/16 19:28 Urine pH 5.5 PH (5.0-7.5) 08/31/16 19:28 Ur Specific [place] <=1.005 (1.002-1.030) 08/31/16 19:28 Urine Protein NEGATIVE mg/dL (NEGATIVE) 08/31/16 19:28 Urine Glucose (UA) NEGATIVE mg/dL (NEGATIVE) 08/31/16 19:28 Urine Ketones NEGATIVE mg/dL (NEGATIVE) 08/31/16 19:28 Urine Occult Blood NEGATIVE (NEGATIVE) 08/31/16 19:28 Urine Nitrite NEGATIVE (NEGATIVE) 08/31/16 19:28 Urine Bilirubin NEGATIVE (NEGATIVE) 08/31/16 19:28 Urine Urobilinogen 0.2 (NORMAL) E.U./dL (NORMAL) 08/31/16 19:28 Ur Leukocyte Esterase NEGATIVE (NEGATIVE) 08/31/16 19:28 Ur Microscopic Review NOT INDICATED 08/31/16 19:28 Urine Culture Comments NOT INDICATED 08/31/16 19:28 Urine HCG, Qual NEGATIVE 08/31/16 19:28 Salicylates < 6.0 mg/dL 08/31/16 18:58 Urine Opiates Screen NEGATIVE (NEGATIVE) 08/31/16 19:28 Ur Oxycodone Screen NEGATIVE (NEGATIVE) 08/31/16 19:28 Urine Methadone Screen NEGATIVE (NEGATIVE) 08/31/16 19:28 Ur Propoxyphene Screen NEGATIVE (NEGATIVE) 08/31/16 19:28 Acetaminophen < 10 ug/mL (10-30) L 09/01/16 02:50 Ur Barbiturates Screen NEGATIVE (NEGATIVE) 08/31/16 19:28 Ur Tricyclics Screen NEGATIVE (NEGATIVE) 08/31/16 19:28 Ur Phencyclidine Scrn NEGATIVE (NEGATIVE) 08/31/16 19:28 Ur Amphetamine Screen NEGATIVE (NEGATIVE) 08/31/16 19:28 U Methamphetamines Scrn NEGATIVE (NEGATIVE) 08/31/16 19:28 U Benzodiazepines Scrn NEGATIVE (NEGATIVE) 08/31/16 19:28 Urine Cocaine Screen NEGATIVE (NEGATIVE) 08/31/16 19:28 U Cannabinoids Screen NEGATIVE (NEGATIVE) 08/31/16 19:28 Ethyl Alcohol < 5.0 mg/dL 08/31/16 18:58
--- NOTE | 2016-09-04 23:45 | PROVIDER PROGRESS NOTE ---
Subjective - Prog Note Date Prog Note Date: 09/02/16 Prog Note Time: 16:00 - Subjective Pt reports feeling: Improved Objective - Vital Signs/Intake & Output Vital Signs: Vital Signs Temp Pulse Resp BP Pulse Ox 09/04/16 23:04 37.1 C 79 18 152/81 H 98 09/04/16 21:23 37.4 C 81 16 118/57 L 96 Intake & Output: Intake & Output 09/01/16 09/02/16 09/03/16 09/04/16 23:59 23:59 23:59 23:59 Intake Total 4205 2540 1240 910 Output Total 1635 2805 2721 825 Balance 2133 -199 -7200 85 - Lab Results Fish Bones: 09/03/16 04:58 09/03/16 04:58
--- NOTE | 2016-09-04 23:50 | PROVIDER PROGRESS NOTE ---
Hospitalist Cross-cover Note - Cross-Cover Note Cross-Cover Note: 09/02/16 16:00 This is a late entry. This is to document the patient was seen twice this day. She had been medically cleared, vitals stable, and my anticipation was to transfer to inpatient psychiatric unit. However late in the afternoon physical therapy saw the patient and feels that she is at increased risk for falls because of poor judgment and still with slight loss of balance. The patient herself was emotionally labile. Affect was muted, occasionally tearful and then out of the blue cheerful, smiling. Twice I asked her about her intentions with regards to taking her own life. She was very calm and stating that she still didn't want to live, would cry when she said that she was a burden to her family, and although she had no current plans right now still plan on doing it in the future. Stillhas occasional jerking of limbs, hands. ? Halucinating. She has mild aches and pains "everywhere" but denies abdominal pain, chest pain. Doesn't have much of an appetite but is eating. No coughing wheezing or dysuria urgency frequency Tele without arrhythmia and Qt is normalizing. Selected Entries 09/02/16 16:02 Temperature 37.8 C H Heart Rate [ 102 H Monitoring electrodes] Respiratory 18 Rate Blood Pressure 130/81 H [Right Brachial artery] O2 Saturation 96 alert disheveled, unkempt white female looks stated age and is obese neck is supple, shotty adenopathy, no bruits, goiter and is supple lungs are clear. occasional clearing of throat or cough but rare. no crackles, rhonchi,wheeze abd in with NABS, nontender, no masses. feet with 1+ edema alert, oriented but will lose train of thought, get confused, then quickly reorient but rambles and rambles. head, hands and feet occasionally spontaneously will jerk Still seeing nystagmus. Laboratory Tests 09/02/16 09/02/16 05:32 05:32 WBC 9.1 Hgb 13.3 Hct 39.9 Plt Count 189 Sodium 139 Potassium 4.0 Chloride 114 H Carbon Dioxide 19 L BUN 18 Creatinine 0.8 Estimated GFR (MDRD) 76 L PT note reviewed: Pt. stands b/s w/mod. a x 1 and add assist for safety; pt. shuts eyes and throws her shoulders behind her hips causing her to lose her balance backward; PT manual support to prevent backward fall; pt. cued to open her eyes but requires repetition to open eyes and try to follow cues; pt. tries to step forward w/o cues, placing her feet in front of her hips causing her to drift posteriorly w/her balance, again requiring PT to correct; pt. then locks her elbows, gripping walker w/head back and shoulders forward; PT attempts to have pt. open her eyes and lower to sitting; she requires manual cues at hip to flex hips and arms to sit; pt. transfers sit to supine w/mod. a x 1-2; she moves her L then R LE to her left side to get straight in the bed; bed is placed in [facility] and pt. is scooted up to head of bed w/max. a x 2 (PT and nurse "Lavelle"); during scoot pt. spontaneously flexes her trunk forward sitting up in long sitting for the scooting process; she lowers her head onto pillow provided; bed is returned to level configuration; pt. is attended by her nurse after PT session; SCD's are redonned and call light in reach; pt's son and his friend are present after PT session. A/P drug overdose with antihistamine/cymbalta/meloxicam/gabapentin? all these bottles are at home and can't verify how many she took. because of ataxia from meds, PT would like her to get therapy until she can safely be independent in the inpatient psych facility where she needs to walk to meals, go to bathroom on own, etc. will cancel transfer for now. recontact [facility] and [facility] when ataxia resolved to point of safety.
[2016-09-05] MEDS: BENZOCAINE/MENTHOL LOZENGE MM PRN (05:26)
[2016-09-05] MEDS: HEPARIN 5,000 UNIT/ML VIAL SUBQ SCH ×2 (08:33→21:20)
[2016-09-05] MEDS: DOCUSATE SODIUM 250 MG CAPSULE PO SCH (08:34)
[2016-09-05] MEDS: SENNA 8.6 MG TABLET PO SCH (08:34)
[2016-09-05] MEDS: POLYETHYLENE GLYCOL 3350 17 GM PACKET PO SCH (08:34)
--- NOTE | 2016-09-05 09:03 | Discharge Plan ---
Discharge Plan Disposition: 01 Home, Self Care Condition: Stable Diet: Regular Activity Restrictions: Activity as Tolerated Shower Restrictions: No Driving Restrictions: No Assistance Devices: Walker Weight Bearing: Full Weight Additional Instructions or Follow Up instructions: You were admitted after suicide attempt; (with pill ingestion) confused and lethargic and with impaired balance [place] State Poison control was contacted at presentation; advised IVFluid, telemetry, recheck EKG and seizure precautions (no seizures but did have several days confusion/impaired balance) You were monitored in the hospital for any side effects/complicatoins from the medications , received IVfluid, were monitored on telemetry, Head CT (noncontrast): normal CT brain , and laboratory studies remained in normal rante You continued to improve over the course of several days, and improved to the point that inpatient management in a mental health facility was no longer acutely necessary You developed a Safety Plan for discharge including recognition of warning signs , coping strategies, important contacts and how to make your home environment safe for discharge FOLLOW UP -Call the crisis follow up line today ([facility]) will be with you today to call to make that appointment for early tomorrow You were on cymbalta before ( and medical management of depression is usually on going, can defer that to your mental health follow up as you have a good safety plan in place. -CALL THE [facility] to establish new PCP, since there is also a mental health therapist there Re migraine history; you noted you have had no headaches since here certainly if you develop early migraine symptoms take your abortive med/ maxalt and consider resuming the preventive topomax/topirmate Re : hormone replacement therapy; you note that your PCP started these after you noted just a few symptoms so if you find the hormone replacement therapy is not helping, ok to d/c Restless legs; you noted no problems off the gabapentin, so can stop this Use your walker as needed No Smoking: If you smoke, Please STOP! Call for help.
--- NOTE | 2016-09-05 21:30 | PROVIDER PROGRESS NOTE ---
Subjective - Prog Note Date Prog Note Date: 09/05/16 Prog Note Time: 21:30 (late entry, seen ~ 8am) - Subjective Pt reports feeling: Improved (denies any headache, expressing some frustration about what a colleague at her workplace ([employer]) overheard her boss say about her, denies thoughts of self harm animatedly describing which tatoos refer to which family members) Current Medications - Current Medications Current Medications: Active Medications Generic Name Dose Route Start Last Admin Trade Name Freq PRN Reason Stop Dose Admin Docusate Sodium 250 - 500 mg 09/03/16 09:00 09/05/16 08:34 Colace 250mg Capsule PO Not Given DAILY SOHEILA Heparin Sodium (Porcine) 5,000 unit 08/31/16 21:00 09/05/16 21:20 SUBQ 5,000 unit BID SOHEILA Administration Lorazepam 1 mg 09/02/16 13:59 09/02/16 15:49 Ativan PO 1 mg Q6H PRN Administration Agitation Polyethylene Glycol 17 gm 09/03/16 09:00 09/05/16 08:34 Miralax PO 17 gm DAILY SOHEILA Administration Senna 8.6 - 17.2 mg 09/03/16 09:00 09/05/16 08:34 Senokot PO Not Given DAILY SOHEILA Throat Lozenges 1 lozenge 09/04/16 05:39 09/05/16 05:26 Cepacol MM 1 lozenge Q2HR PRN Administration Throat pain Ziprasidone 10 mg 09/01/16 22:44 09/02/16 22:13 Geodon Im IM 10 mg Q6H PRN Administration Agitation Gabapentin 100 mg PO BID 01/16/14 Hydroxyzine HCl 50 mg PO QPM 01/16/14 Rizatriptan Benzoate [Maxalt] 10 mg PO ONCE PRN 01/16/14 Topiramate [Topamax] 50 mg PO DAILY 01/16/14 Albuterol Sulfate [Proair Hfa Inhaler] 2 puffs INH Q4H PRN 09/01/16 DULoxetine [Cymbalta] 30 mg PO QPM 09/01/16 Estradiol 1 mg PO DAILY 09/01/16 Meloxicam 7.5 mg PO DAILY 09/01/16 Progesterone,Micronized [Prometrium] 100 mg PO DAILY 09/01/16 Objective - Vital Signs/Intake & Output Reviewed Vital Signs: Yes Vital Signs: Vital Signs x48h Temp Pulse Resp BP Pulse Ox 09/05/16 20:22 36.4 C L 76 16 108/51 L 96 09/05/16 13:51 36.7 C 84 18 138/79 H 96 Intake & Output: Intake & Output 09/02/16 09/03/16 09/04/16 09/05/16 23:59 23:59 23:59 23:59 Intake Total 2540 8658 295 6428 Output Total 2805 2725 825 Balance -265 -1485 85 1420 - Objective General Appearance: positive: Other (alert, oriented , appropriate engageable today, animated, even voicing frustration at her boss seen later walking with Pt in halls w/ walker) Eyes Bilateral: positive: PERRL, EOMI Respiratory: positive: No respiratory distress, Breath sounds nml Cardiovascular: positive: Regular rate & rhythm, No murmur Abdomen: positive: Nml bowel sounds, No distention, Other (obese). negative: Tenderness Skin: positive: Warm, Dry, Other (multiple tatoos, no skin lesions). negative: Diaphoresis Extremities: positive: No pedal edema, Other (Very large legs) Neurologic/Psychiatric: positive: Oriented x3, Mood/affect nml, Other (no tremor , no myoclonus) - Lab Results Fish Bones: 09/03/16 04:58 09/03/16 04:58 Assessment/Plan - Problem List (1) Overdose Impression: (1) Depression mood improved, no thoughts of self harm She is able to verbalize her life difficulty currently is inthe workplace/ workplace boss 2 Delirium Assessment/Plan: 09/05; resolved, has not needed geodon since 09/02 pm 09/04Patient had acute delirium with hallucinations She is much improved today with no hallucinations but still confused at times CT head was negative Labs and infectious work up is negative Likely ICU delirium and is improving Patient will be continued on ziprasidone and ativan One on one with sitter Monitor Will need inpatient psych placement (2) Overdose Qualifiers: Encounter type: initial encounter Injury intent: intentional self-harm Qualified Code(s): T50.902A - Poisoning by unspecified drugs, medicaments and biological substances, intentional self-harm, initial encounter Assessment/Plan: Suicide attempt Overdose with home meds: topamax, gabapentin and meloxicam hallucinations/psychosis resolved above, myoclonus and ataxia resolved (see PT eval below) Improved, QT normalized, tele d/c'd several days ago No expression of self harm. Frustrated with statements her boss has made about her Aware to focus on her current personal needs Pt now requesting voluntary inpatient psych Different inpatient psych facilities now being explored No longer need CDMHP evaluation if can go with walker PT eval today by Dannielle; (improved evaluation): "pt. asks to try w/o walker today as she is feeling stronger; PT agrees; pt. stands w/sba; she amb. x sba to cga in hallway, reaching for mars and railings at first for stability; pt. moves to center of hallway and amb. w/normal step length, mild lateral trunk lurch compensating for painful joints in standing; she completes a total of 140 ft. amb. w/o assistive device w/cga to occasional sba; she returns to her room reporting she is stronger today but still agrees w/PT that she is more balanced using walker and does not show antalgic gait pattern. Pt. sits on b/s and has no questions or voiced concerns for PT. PT will see pt. again tomorrow to see if ambulation w/o A.D. can progress to sba/independence w/good gait pattern and safe balance." (3) Ataxia Assessment/Plan: as above; gait progressively improved and patient even asked to try ambulating w/o walker Qualifiers: Encounter type: initial encounter Injury intent: intentional self-harm Qualified Code(s): T50.902A - Poisoning by unspecified drugs, medicaments and biological substances, intentional self-harm, initial encounter
[2016-09-06] MEDS: HEPARIN 5,000 UNIT/ML VIAL SUBQ SCH (09:17)
[2016-09-06] MEDS: POLYETHYLENE GLYCOL 3350 17 GM PACKET PO SCH (09:18)
[2016-09-06] MEDS: DOCUSATE SODIUM 250 MG CAPSULE PO SCH (09:18)
[2016-09-06] MEDS: SENNA 8.6 MG TABLET PO SCH (09:19)
--- NOTE | 2016-09-06 19:20 | PROVIDER PROGRESS NOTE ---
Subjective - Prog Note Date Prog Note Date: 09/06/16 Prog Note Time: 19:10 (late entry , pt seen ~ 8am) - Subjective Pt reports feeling: Improved (Patient still indicates interest in voluntary admission Per casemanagement, there is a new inpatient facility which accepts patients with DME (walker) awaiting evaluation) Current Medications - Current Medications Current Medications: Active Medications Generic Name Dose Route Start Last Admin Trade Name Freq PRN Reason Stop Dose Admin Docusate Sodium 250 - 500 mg 09/03/16 09:00 09/06/16 09:18 Colace 250mg Capsule PO Not Given DAILY SOHEILA Heparin Sodium (Porcine) 5,000 unit 08/31/16 21:00 09/06/16 09:17 SUBQ 5,000 unit BID SOHEILA Administration Lorazepam 1 mg 09/02/16 13:59 09/02/16 15:49 Ativan PO 1 mg Q6H PRN Administration Agitation Polyethylene Glycol 17 gm 09/03/16 09:00 09/06/16 09:18 Miralax PO Not Given DAILY SOHEILA Senna 8.6 - 17.2 mg 09/03/16 09:00 09/06/16 09:19 Senokot PO Not Given DAILY SOHEILA Throat Lozenges 1 lozenge 09/04/16 05:39 09/05/16 05:26 Cepacol MM 1 lozenge Q2HR PRN Administration Throat pain Ziprasidone 10 mg 09/01/16 22:44 09/02/16 22:13 Geodon Im IM 10 mg Q6H PRN Administration Agitation Gabapentin 100 mg PO BID 01/16/14 Hydroxyzine HCl 50 mg PO QPM 01/16/14 Rizatriptan Benzoate [Maxalt] 10 mg PO ONCE PRN 01/16/14 Topiramate [Topamax] 50 mg PO DAILY 01/16/14 Albuterol Sulfate [Proair Hfa Inhaler] 2 puffs INH Q4H PRN 09/01/16 DULoxetine [Cymbalta] 30 mg PO QPM 09/01/16 Estradiol 1 mg PO DAILY 09/01/16 Meloxicam 7.5 mg PO DAILY 09/01/16 Progesterone,Micronized [Prometrium] 100 mg PO DAILY 09/01/16 Objective - Vital Signs/Intake & Output Reviewed Vital Signs: Yes Intake & Output: Intake & Output 09/03/16 09/04/16 09/05/16 09/06/16 23:59 23:59 23:59 23:59 Intake Total 4479 092 4684 1790 Output Total 2725 825 Balance -1485 85 1720 1790 - Objective General Appearance: positive: Other (pleasant, lying in bed, eating meals animated in conversation notes neighbor kept her up some of the night) Eyes Bilateral: positive: PERRL, EOMI Respiratory: positive: No respiratory distress, Breath sounds nml Cardiovascular: positive: Regular rate & rhythm, No murmur Abdomen: positive: Nml bowel sounds, No distention, Other (obese). negative: Tenderness Skin: positive: Warm, Dry, Other (multiple tatoos) - Lab Results Fish Bones: 09/03/16 04:58 09/03/16 04:58 Assessment/Plan - Problem List (1) Overdose Impression: Overdose Impression: (1) Overdose and Suicide attempt 09/06; awaiting placement (voluntary admission), Per PT eval , patient has progressed to not needing her ambulatory assistive device, so hopefully will find inpatient psych bed soon no further thoughts of self harm 09/05Suicide attempt Course Overdose with home meds: topamax, gabapentin and meloxicam hallucinations/psychosis resolved above, myoclonus and ataxia resolved (see PT eval below) Improved, QT normalized, tele d/c'd several days ago No expression of self harm. Frustrated with statements her boss has made about her Aware to focus on her current personal needs Pt now requesting/interested voluntary inpatient psych Different inpatient psych facilities now being explored No longer need CDP evaluation if can go with walker 2 Delirium and ataxia resolved Assessment/Plan: 09/05; resolved, has not needed geodon since 6 pm 09/04Patient had acute delirium with hallucinations She is much improved today with no hallucinations but still confused at times CT head was negative Labs and infectious work up is negative Likely ICU delirium and is improving Patient will be continued on ziprasidone and ativan One on one with sitter Monitor Will need inpatient psych placement (3) Ataxia Assessment/Plan: as above; resolved Qualifiers: Encounter type: initial encounter Injury intent: intentional self-harm Qualified Code(s): T50.902A - Poisoning by unspecified drugs, medicaments and biological substances, intentional self-harm, initial encounter
[2016-09-07] MEDS: HEPARIN 5,000 UNIT/ML VIAL SUBQ SCH ×3 (01:13→21:00)
[2016-09-07] MEDS: SENNA 8.6 MG TABLET PO SCH (10:15)
[2016-09-07] MEDS: POLYETHYLENE GLYCOL 3350 17 GM PACKET PO SCH (10:15)
[2016-09-07] MEDS: DOCUSATE SODIUM 250 MG CAPSULE PO SCH (10:15)
--- NOTE | 2016-09-07 16:41 | PROVIDER PROGRESS NOTE ---
Subjective - Prog Note Date Prog Note Date: 09/07/16 Prog Note Time: 16:39 - Subjective Pt reports feeling: Improved (spoke at length with Macy /KASIA this am about returning home. Given her improvement in mood and resolved feelings of self harm (although still extremely stressed about work situation), patient gave much thought to whether comfortable returning home (with personal Safety Plan Template developed per CM since inpatient faciliities indicate she has improved beyond inpatient Psych requirement) Current Medications - Current Medications Current Medications: Active Medications Generic Name Dose Route Start Last Admin Trade Name Freq PRN Reason Stop Dose Admin Docusate Sodium 250 - 500 mg 09/03/16 09:00 09/07/16 10:15 Colace 250mg Capsule PO Not Given DAILY SOHEILA Heparin Sodium (Porcine) 5,000 unit 08/31/16 21:00 09/07/16 10:10 SUBQ 5,000 unit BID SOHEILA Administration Lorazepam 1 mg 09/02/16 13:59 09/02/16 15:49 Ativan PO 1 mg Q6H PRN Administration Agitation Polyethylene Glycol 17 gm 09/03/16 09:00 09/07/16 10:15 Miralax PO Not Given DAILY SOHEILA Senna 8.6 - 17.2 mg 09/03/16 09:00 09/07/16 10:15 Senokot PO Not Given DAILY [facility] Throat Lozenges 1 lozenge 09/04/16 05:39 09/05/16 05:26 Cepacol MM 1 lozenge Q2HR PRN Administration Throat pain Ziprasidone 10 mg 09/01/16 22:44 09/02/16 22:13 Geodon Im IM 10 mg Q6H PRN Administration Agitation Gabapentin 100 mg PO BID 01/16/14 Hydroxyzine HCl 50 mg PO QPM 01/16/14 Rizatriptan Benzoate [Maxalt] 10 mg PO ONCE PRN 01/16/14 Topiramate [Topamax] 50 mg PO DAILY 01/16/14 Albuterol Sulfate [Proair Hfa Inhaler] 2 puffs INH Q4H PRN 09/01/16 DULoxetine [Cymbalta] 30 mg PO QPM 09/01/16 Estradiol 1 mg PO DAILY 09/01/16 Meloxicam 7.5 mg PO DAILY 09/01/16 Progesterone,Micronized [Prometrium] 100 mg PO DAILY 09/01/16 Objective - Vital Signs/Intake & Output Reviewed Vital Signs: Yes Vital Signs: Vital Signs x48h Temp Pulse Resp BP Pulse Ox 09/07/16 12:49 36.2 C L 73 16 122/62 97 Intake & Output: Intake & Output 09/04/16 09/05/16 09/06/16 09/07/16 23:59 23:59 23:59 23:59 Intake Total 910 1720 1790 1430 Output Total 825 Balance 85 1720 1790 1430 - Objective General Appearance: positive: Other (in bed, finished breakfast, animated, has insight into her decisions and options) Eyes Bilateral: positive: PERRL, EOMI, Other Respiratory: positive: No respiratory distress, Breath sounds nml Cardiovascular: positive: Regular rate & rhythm, No murmur Abdomen: positive: Nml bowel sounds, No distention. negative: Tenderness Skin: positive: Warm, Dry Extremities: positive: Other (per patient,no pedal edema since the SCD's have been on) Neurologic/Psychiatric: positive: Other (engageable, animated, has insight, and is thoughtful about her options/decision making gets out of bed and ambulates to bathroom with no difficulty) - Lab Results Fish Bones: 09/03/16 04:58 09/03/16 04:58 Assessment/Plan - Problem List (1) Overdose Impression: Overdose and Suicide attempt 09/07; Per CM she has improved to the point that inpatient psych beds indicate there is no longer an acute need for inpatient placement Per CM note: Plan; d/c home tomorrow with personal Safety Plan Template (warning signs, internal coping strategies, people/settings to provide distraction and contacts personal and professional to contact and environmental safety evaluations and crisis follow up on Friday d/c in am 09/06; awaiting placement (voluntary admission), Per PT eval , patient has progressed to not needing her ambulatory assistive device, so hopefully will find inpatient psych bed soon no further thoughts of self harm 09/05Suicide attempt Course Overdose with home meds: topamax, gabapentin and meloxicam hallucinations/psychosis resolved above, myoclonus and ataxia resolved (see PT eval below) Improved, QT normalized, tele d/c'd several days ago No expression of self harm. Frustrated with statements her boss has made about her Aware to focus on her current personal needs Pt now requesting/interested voluntary inpatient psych Different inpatient psych facilities now being explored No longer need CDMHP evaluation if can go with walker 2 Delirium and ataxia resolved Assessment/Plan: 09/05; resolved, has not needed geodon since 09/02 pm 09/04Patient had acute delirium with hallucinations She is much improved today with no hallucinations but still confused at times CT head was negative Labs and infectious work up is negative Likely ICU delirium and is improving Patient will be continued on ziprasidone and ativan One on one with sitter Monitor Will need inpatient psych placement (3) Ataxia Assessment/Plan: as above; resolved Qualifiers: Qualifiers: Encounter type: initial encounter Injury intent: intentional self-harm Qualified Code(s): T50.902A - Poisoning by unspecified drugs, medicaments and biological substances, intentional self-harm, initial encounter
[2016-09-08] MEDS: POLYETHYLENE GLYCOL 3350 17 GM PACKET PO SCH (08:39)
[2016-09-08] MEDS: SENNA 8.6 MG TABLET PO SCH (08:39)
[2016-09-08] MEDS: DOCUSATE SODIUM 250 MG CAPSULE PO SCH (08:39)
[2016-09-08] MEDS: HEPARIN 5,000 UNIT/ML VIAL SUBQ SCH (09:06)
[2016-09-08 10:21] VITALS: BP 128/66
--- NOTE | 2016-09-09 08:19 | DISCHARGE SUMMARY ---
DATE OF ADMISSION: 08/31/2016 DATE OF DISCHARGE: 09/08/2016 PRIMARY CARE PROVIDER: Susan Nelson DO; patient will possibly be seeking out a new primary provider in the [facility] as there is also a mental health therapist there. PRIMARY DISCHARGE DIAGNOSES 1. Suicide attempt. 2. Depression. 3. Migraines. PROCEDURES THIS ADMISSION: None. CONSULTATIONS: None, other than Social Work and Physical Therapy. DIAGNOSTIC IMAGING STUDIES 1. Head CT 09/03/2016: Normal CT of the brain without contrast. 2. EKG on admission 08/31/2016: Normal sinus rhythm with normal axis, unremarkable EKG. DIAGNOSTIC LABORATORY STUDIES Admission white count 8.4, hemoglobin 15.8, hematocrit 46.9. Platelets 250,000. Any repeat CBCs during admission were essentially unchanged. CHEMISTRIES: Admission sodium 139, potassium 4.1, chloride 105, bicarbonate 23, BUN 22, creatinine 0.8, glucose 88. AST and ALT were 50 and 36. Troponin was less than 0.04. TSH was 1.19. Repeat transaminases were normalized and when last checked on 09/03/2016 were 21 and 21, respectively. URINALYSIS ON ADMISSION: Unremarkable. Urine tox screen was negative for all agents tested for. ABG 08/31/2016: pH 7.28, pCO2 of 42, PO2 of 57.6, this is the venous gas, and bicarbonate 19.5. A repeat venous gas the next day had a pH of 7.3. BRIEF HOSPITAL COURSE BY PROBLEM PROBLEM #1: Patient is a 51-year-old female who recently has been having stressors, both in her workplace as well as financially. Her family found her lethargic with an empty bottle of Benadryl. Her other medications could not be found; those include: Maxalt, gabapentin, and Topamax. It is not clear if she took an excess, or any of those. On presentation a urine tox screen was negative for other agents, and a pH was mildly acidotic at 7.28. She did not require intubation. She was monitored in the ICU for several days for lethargy and psychosis, and also as she improved, she had an impaired gait and ataxia. [facility] was called on presentation, and they advised IV fluid, monitoring on telemetry, and seizure precautions. She improved gradually over several days and was monitored by Physical Therapy who found no skilled needs as she continued to improve. Initially the plan was for an involuntary psych admission; however, since she continued to improve, and there were no beds available, eventually, she was going to go to a voluntary placement. However, since she had improved so much with no thoughts of harm and much more logical thinking with good insight, (and since there were no beds available that would accept somebody with durable medical equipment, since she occasionally uses a walker,) after much consultation with the social work service, as well as thoughtful consideration of what she wanted to do on her part, she elected to go home with a patient safety plan, which she went through with the block and case maker, and she will set up a followup at the crisis center on Friday. Her safety plan includes: 1. She recognizes warning signs of chest pain, shaking, and shortness of breath. 2. Internal coping strategies include a video of her granddaughter, reading books, adult coloring. 3. She has identified people in social settings who can provide her distraction , including Sloane Stapleton and Ghassan Puckett, and she is able to identify the crisis lines or professionals she would need to contact in the event of repeat thoughts of self-harm. For the last several days of admission, she has denied any thoughts of self- harm and has a considerable improvement in her mood, especially recognizing that is it primarily the work place that is her stressor, as well as recognizing sources of comfort, which are her family and other people. Regarding her mood, she is not acutely depressed at this time. She had been on Cymbalta in the past; we will defer resumption of that to her following either mental health or a primary provider. However, it is recognized that depression management is generally long-term, and she is aware that likely they will recommended resuming that medication. Regarding her other medications, she was on none of those, during the course of her admission, which include estrogen replacement and preventive and abortive migraine medications. She is going to try to not take those at home, but she is aware that if she were to have a migraine, she certainly should resume her preventive medication. DISCHARGE MEDICATIONS 1. ProAir HFA 2 puffs every 4 hours if needed for shortness of breath. 2. Topamax 50 mg once daily if she redevelops migraines as preventative agent. 3. Maxalt 10 mg once if needed for a migraine. 4. Patient also is on progesterone and Estradiol at home. She says that her primary provider prescribed them after a very brief review of symptoms. She does not feel she needs them, and that is up to her if she wishes to stop those. PHYSICAL EXAMINATION ON THE DAY OF DISCHARGE VITAL SIGNS: She is afebrile 36.8, heart rate 79-84, blood pressure 128/66, respiratory rate 18, 96% oxygenation on room air. GENERAL: Patient is a very petite but obese female who is sitting in her room. She is very animated in discussion. She is easily engaged, has good insight into her problem, and identifies a plan for discharge, as well as the plan for crisis followup tomorrow. HEAD, EARS, EYES, NOSE, AND THROAT: Extraocular movements are intact. There is no nystagmus. Her pupils are equal. Her oral mucosa is moist. NECK: Supple. CHEST: Clear to auscultation. She has unlabored respirations on room air. HEART: Regular S1, S2 with no murmur, rub, or gallop. ABDOMEN: Obese but soft, nondistended, nontender with positive bowel sounds. EXTREMITIES: Very large lower extremities but no appreciable edema. SKIN: Warm and dry and not diaphoretic, with multiple tattoos of family members ' names. JOB #: [id number] EXT JOB #:[id number]
== END 2016-09-08 11:17 | disposition home or self-care (01) | DRG 917 ==
LOC: EDUNIT# → ED 18:51 → ICU 20:22 → MS 09-04 22:55
PROVIDERS: ADMIT Specialist; ATTEND Nurse Practitioner
DX: T45.0X2A Poisoning by antiallergic and antiemetic drugs, intentional self-harm, initial encounter (principal); G92 Toxic encephalopathy; R44.3 Hallucinations, unspecified; T42.6X2A Poisoning by other antiepileptic and sedative-hypnotic drugs, intentional self-harm, initial encounter; T39.392A Poisoning by other nonsteroidal anti-inflammatory drugs [NSAID], intentional self-harm, initial encounter; Z63.79 Other stressful life events affecting family and household; R27.0 Ataxia, unspecified; E66.9 Obesity, unspecified; Z88.0 Allergy status to penicillin; Z88.5 Allergy status to narcotic agent; G40.909 Epilepsy, unspecified, not intractable, without status epilepticus; R41.0 Disorientation, unspecified; F32.9 Major depressive disorder, single episode, unspecified; G89.29 Other chronic pain; M54.9 Dorsalgia, unspecified; F17.200 Nicotine dependence, unspecified, uncomplicated
CPT/HCPCS: 36415; 51701; 70450; 80053; 80306; 80307; 80320; 80329; 81001; 81003; 81025; 82553; 82803; 83605; 83690; 83735; 84100; 84443; 84484; 85025; 87086; 87150; 93005; 93010; 96360; 99284; 99285